=== PATIENT | male | born 1950 | race Caucasian/White ===

== ENCOUNTER → 2020-11-05 11:41 | Outpatient (BNVA) | payer MEDICARE, SELFPAY | PROVIDERS: Visit Provider Urology | DX: C61 Malignant neoplasm of prostate (principal); N52.01 Erectile dysfunction due to arterial insufficiency | CPT/HCPCS: 99212 ==

== ENCOUNTER → 2021-02-05 08:59 | Outpatient (BNVA) | payer MEDICARE, OTHER, SELFPAY | PROVIDERS: Visit Provider Urology | CPT/HCPCS: Q3014 ==

== ENCOUNTER → 2021-08-05 10:03 | Outpatient (BNVA) | payer MEDICARE, OTHER, SELFPAY | PROVIDERS: Visit Provider Urology | DX: N52.01 Erectile dysfunction due to arterial insufficiency (principal); C61 Malignant neoplasm of prostate; R39.12 Poor urinary stream | CPT/HCPCS: Q3014 ==

== ENCOUNTER → 2022-02-10 09:22 | Outpatient (BNVA) | payer MEDICARE, OTHER, SELFPAY | PROVIDERS: Visit Provider Urology | DX: C61 Malignant neoplasm of prostate (principal); N52.01 Erectile dysfunction due to arterial insufficiency | CPT/HCPCS: 99212 ==

== ENCOUNTER 2022-12-08 14:52 | Outpatient (REF) | payer MEDICARE, OTHER, SELFPAY ==
[2022-12-08 16:39] LABS: Urine Cytology See Pathology rpt
== END 2022-12-08 14:53 | disposition home or self-care (01) ==
LOC: HO.LNP 14:52
PROVIDERS: Visit Provider Urology
DX: N52.9 Male erectile dysfunction, unspecified (principal); R39.12 Poor urinary stream; R32 Unspecified urinary incontinence; Z85.46 Personal history of malignant neoplasm of prostate
CPT/HCPCS: 51798; 88112; 99212

== ENCOUNTER 2022-12-08 14:52 | Outpatient (AMB) | payer MEDICARE, OTHER, SELFPAY ==
--- NOTE | 2022-12-08 15:13 | A.OFFVIS_ITS ---
Intake Intake Visit Reasons: Incontinence Intake Note: Patient is present for incontinence Urology Medications: tolterodine, finasteride, sildenafil, tamsulosin Blood Thinner: aspirin PVR: Whale Fisherman Required: No Accompanied by: Self / Same As Patient Allergies No Known Allergies Allergy (Verified 12/08/22 15:19) HPI HPI Comments History of Present Illness Details Antoni Zaragoza is a very pleasant male. He is a patient of Dr. Antoine. He is seen for the following urologic conditions. - prostate cancer - kidney calcification Had episode running from June until September of urinary urgency and frequency Despite use of tolterodine Does feel stream is getting weaker Recommend check cystoscopy for bladder neck narrowing and possible radiation cystitis Prostate cancer: 2004 [place] 6 initial therapy brachytherapy Prostate cancer was diagnosed 04/2005. Initial PSA 2.74. TRUS biopsy November 2000, April 2005. The [place] grade is 3+3. TNM Classification of Malignant Tumours (TNM) T1c. Initial therapy included Primary treatment, brachytherapy - no reports of urge, frequency, radiation cystitis or radiation proctitis with rectal urgency. , Additional treatment, finasteride Recent labs included a PSA (prostate-specific antigen) March 2014 0.6, October 2014 0.75, 08/13 1.49, 12/13 , a testosterone 428, 02/13 a PSA (prostate-specific antigen), 1.1, 01/14 , a PSA (prostate-specific antigen) 1.2 03/17 0.75, 11/17 1.7, 02/17 1.2, 07/21 0.7, 02/18 0.7 Recent imaging included for 2-3 days Associated conditions erectile dysfunction Yes Therapeutic plan: Continue with surveillance. Current symptoms include none Erectile Dysfunction good response to sildenafil 100 mg prescription provided [facility] Medical History Colonic polyp GERD (gastroesophageal reflux disease) History of brachytherapy OA (osteoarthritis) Prostate cancer Prostate nodule Surgical History H/O left inguinal hernia repair History of left knee replacement History of total right knee replacement Family History Father No problems noted. Mother No problems noted. Review of Systems Const Denies chills and Denies fever(s) Card Reports no additional complaints and Denies syncope Resp Denies cough GI Denies abdominal pain and Denies heartburn Reports as per HPI and Denies change in libido Neuro Denies syncope Psych Denies change in libido Endo Denies change in libido Physical Exam Const General: cooperative, healthy appearing, comfortable and no acute distress Orientation/consciousness: patient oriented x3 HEENT Face and sinus: Yes normal facial exam Mouth: moist mucous membranes Neck Neck: Yes normal visual inspection, Yes full ROM and Yes trachea midline Chest Chest palpation & inspection: normal inspection of the chest Resp Effort & Inspection: normal respiratory effort, able to speak in complete sentences and no respiratory distress GI Inspection: Yes normal to inspection Back/Spine/Pelvis Cervical Spine: normal cervical lordosis Thoracic/Lumbar Spine: thoracic and lumbar spine normal to inspection Skin General skin exam: no rashes or lesions noted Neuro General: patient oriented x3, gait normal, tone normal and moves all extremities Extrem General: Yes normal to inspection and Yes capillary refill normal Office Procedures Post Void Residual Post Residual Void Post Void Residual (PVR): 0 [id number] Void Residual by ultrasound Results AMB Urinalysis, Automated UA Leukoctes 0 Josiane/uL Last Edit by Genmab on 12/08/22 15:33 UA Nitrite Negative Last Edit by Genmab on 12/08/22 15:33 UA Urobilinogen 0.2 mg/dL Last Edit by Genmab on 12/08/22 15:33 UA Protein 30 mg/dL Last Edit by Genmab on 12/08/22 15:33 UA pH 6.0 Last Edit by Genmab on 12/08/22 15:33 UA Blood 200 Shahzad/uL Last Edit by Genmab on 12/08/22 15:33 UA Specific [place] 1.030 Last Edit by Genmab on 12/08/22 15:33 UA Ketone Positive Last Edit by Genmab on 12/08/22 15:33 UA Bilirubin 1 mg/dL Last Edit by Genmab on 12/08/22 15:33 UA Glucose 0 mg/dL Last Edit by Genmab on 12/08/22 15:33 Results Reviewed Results Reviewed: Laboratory Last Values Urine pH (Auto) 6.0 12/08/22 15:20 Specific [place] (Auto) 1.030 12/08/22 15:20 Urine Protein (Auto) 30 mg/dL 12/08/22 15:20 Glucose (UA)(Auto) 0 mg/dL 12/08/22 15:20 Urine Ketones (Auto) Positive 12/08/22 15:20 Urine Blood (Auto) 200 Shahzad/uL 12/08/22 15:20 Urine Nitrite (Auto) Negative 12/08/22 15:20 Urine Bilirubin (Auto) 1 mg/dL 12/08/22 15:20 Urine Urobilinogen (Auto) 0.2 mg/dL 12/08/22 15:20 Leukocyte Esterase (Auto) 0 Josiane/uL 12/08/22 15:20 Assessment & Plan Assessment & Plan (1) Prostate cancer: Code(s): C61 - Malignant neoplasm of prostate (2) Urinary urgency: Code(s): R39.15 - Urgency of urination (3) Weak urinary stream: Code(s): R39.12 - Poor urinary stream Plan Office cystoscopy Orders: Orders Urine Cytology Today C61 - Malignant neoplasm of prostate AMB Urinalysis Automated Today Z13.9 - Encounter for screening, unspecified AMB Post Void Residual by ultrasound Today R39.12 - Poor urinary stream Patient Instructions: Imaging studies, laboratory and physical exam results were discussed and reviewed in detail. No major barriers to patient understanding were identified. An opportunity to ask questions regarding the treatment plan was provided. All questions were answered. The patient expressed understanding and agreement with the above treatment plan. The patient is aware they should contact our office by phone for worsening of their current condition or the appearance of new urologic symptoms. Compliance is encouraged with any medications and followup testing that is ordered. It is a privilege to participate in the urologic care of your patient. If you have any questions or concerns regarding treatment for the above conditions, or other urologic issues, please do not hesitate to contact me. The office telephone contact is [phone]. This note is constructed using voice recognition software. While every effort has been made to ensure accuracy stock taker errors may have been included. Yours sincerely, Dr Anthony Mcghee MD, BEATRICE [facility] - Urology Providers of Expert, Compassionate Care for the Genitourinary System Coding Level of Care Code Est Pt Level 4 (35071) Diagnoses Prostate cancer C61 Urinary urgency R39.15 Weak urinary stream R39.12 CPT Codes Post Residual Void - PVR CPT Code: [id number]-[id number] Void Residual by ultrasound ([id number])
== END 2022-12-08 16:06 | disposition home or self-care (01) ==
PROVIDERS: Visit Provider Urology
DX: C61 Malignant neoplasm of prostate (principal); R39.15 Urgency of urination; R39.12 Poor urinary stream
CPT/HCPCS: 99214

== ENCOUNTER 2023-03-31 13:42 | Outpatient (AMB) | payer MEDICARE, OTHER, SELFPAY ==
--- NOTE | 2023-03-31 13:42 | MHC.OFFVIS ---
Intake Intake Visit Reasons: Prostate cx/Urgency follow up/PSA (Med refill) Intake Note: Patient is present for follow up medication refill/psa lab (psa 1.11) Urology Medications: tolterodine, finasteride, sildenafil, tamsulosin Blood Thinner: none Special Delivery Messenger Required: No Accompanied by: Self / Same As Patient Allergies No Known Allergies Allergy (Verified 03/31/23 21:16) Medication List - Last Reconciled 03/31/23 by KEY Isidro- atorvastatin 20 mg PO DAILY escitalopram oxalate 10 mg PO DAILY finasteride 5 mg PO DAILY 90 days omeprazole 20 mg PO DAILY sildenafil 100 mg PO DAILY PRN 30 days tamsulosin 0.4 mg PO DAILY 90 days tolterodine ER 4 mg PO DAILY 90 days trazodone 50 mg PO DAILY HPI HPI Comments History of Present Illness Details Antoni is a very pleasant 72-year-old male patient of Dr. Werner. He has a past medical history of prostate nodule, colonic polyp, osteoarthritis, GERD, and prostate cancer. He is being follow-up on today via telehealth for his lower urinary tract symptoms and prostate cancer. He reports to be doing and feeling well. He discusses during last office visit plans were to follow-up with an in office cystoscopy however he has been busy with work and has not been able to schedule in office appointment thus telehealth today. He reports needing a refill on his tolterodine. He discusses upcoming appointment for cataract surgery at which time he will be stopping urological medications as suggested by shop helper. He reports when taking tolterodine, Flomax, and finasteride he has no bothersome urinary issues. However states over the last 6 weeks he has been out of tolterodine and has noted a significant decrease in his urinary stream. Discussed importance of following up in office for recommended checked cystoscopy for bladder neck narrowing and possible radiation cystitis. He otherwise offers no other issues or concerns at this time. Most recent PSA results reviewed with the patient today as noted below. Prostate cancer: 2005 [place] 6 initial therapy brachytherapy Prostate cancer was diagnosed 04/2005. Initial PSA 2.74. TRUS biopsy November 2000, April 2005. The [place] grade is 3+3. TNM Classification of Malignant Tumours (TNM) T1c. Initial therapy included Primary treatment, brachytherapy - no reports of urge, frequency, radiation cystitis or radiation proctitis with rectal urgency. , Additional treatment, finasteride Recent labs included a PSA (prostate-specific antigen) March 2014 0.6, October 2014 0.75, 08/13 1.49, 12/13 , a testosterone 428, 02/13 a PSA (prostate-specific antigen), 1.1, 01/14 , a PSA (prostate-specific antigen) 1.2 03/17 0.75, 11/17 1.7, 02/17 1.2, 07/21 0.7, 02/18 0.7, 03/21 1.1 Recent imaging included for 2-3 days Associated conditions erectile dysfunction Yes Therapeutic plan: Continue with surveillance. Current symptoms include none Erectile Dysfunction good response to sildenafil 100 mg prescription provided [facility] Medical History Prostate nodule Colonic polyp OA (osteoarthritis) GERD (gastroesophageal reflux disease) Prostate cancer History of brachytherapy Surgical History History of total right knee replacement History of left knee replacement H/O left inguinal hernia repair Family History Father No problems noted. Mother No problems noted. Review of Systems Const Reports no additional complaints Eyes Reports no additional complaints ENT Reports no additional complaints Card Reports no additional complaints Resp Reports no additional complaints GI Reports no additional complaints Reports as per HPI Musc Reports as per HPI Neuro Reports no additional complaints Psych Reports no additional complaints Endo Reports no additional complaints Physical Exam Const General: cooperative Resp Effort & Inspection: able to speak in complete sentences Psych Speech and movement: Clear speech present Attitude: cooperative Thought content: Normal thought content present Insight: Fair insight present (Psych) Judgement: Fair judgement present (Psych) Assessment & Plan Assessment & Plan (1) Prostate cancer: Code(s): C61 - Malignant neoplasm of prostate (2) Urinary urgency: Code(s): R39.15 - Urgency of urination (3) Weak urinary stream: Code(s): R39.12 - Poor urinary stream Plan Recent PSA results reviewed with the patient today; as noted above. Refills provided. Discussed, educated, encouraged on the importance of following up for in office cystoscopy for further assessment evaluation Discussed importance of keeping scheduled appointments for continuity of care. Continue tamsulosin, tolterodine, and finasteride as discussed and prescribed. PSA in 6 months. Follow-up in office cystoscopy with lab to be completed prior; or sooner with any issues, concerns, and or questions. Orders: Orders Prostate Specific Antigen 6 Months C61 - Malignant neoplasm of prostate Medications: Refilled tolterodine ER 4 mg PO DAILY 90 days 90 caps 1RF Patient Instructions: The patient had an opportunity to ask questions regarding the treatment plan. All questions were answered. Physical exam, labs, and imaging were discussed and reviewed in detail. As well as risks, benefits, and discussion of treatment choices. No major barriers to understanding were identified. The patient expressed understanding and agreement with the above treatment plan. The patient was made aware they should contact our office by phone for worsening of their current condition, the appearance of new symptoms, or with any questions or concerns. Compliance is encouraged with any medications and follow up testing that is ordered. It is a privilege to be allowed the opportunity to participate in? your urological care.? Again, if you have any questions or concerns If you have any questions or concerns please do not hesitate to contact me. The office is [phone]. This note is constructed using voice recognition software. While every effort has been made to ensure accuracy primary school teacher librarian errors may have been included. Yours sincerely, KEY Isidro- Telehealth Telehealth Location of provider rendering services: practice address Location of patient: address on file Patient Identification confirmed using: Name, : Yes Telehealth method: voice only Patient verbally consented to treatment: Yes Patient verbally consented to billing insurance company: Yes Patient informed of any privacy concerns related to visit: Yes Minutes spent on Phone/Video with Pt.: 15 Coding Level of Care Code Tele Est Pt Level 3 (98188) Diagnoses Prostate cancer C61 Urinary urgency R39.15 Weak urinary stream R39.12
== END 2023-03-31 14:24 | disposition home or self-care (01) ==
LOC: HO.HUSH 13:42
PROVIDERS: PCP Internal Medicine; Visit Provider Nurse Practitioner Family
DX: C61 Malignant neoplasm of prostate (principal); R39.15 Urgency of urination; R39.12 Poor urinary stream
CPT/HCPCS: 99442

== ENCOUNTER → 2023-03-31 13:42 | Outpatient (BNVA) | payer MEDICARE, OTHER, SELFPAY | PROVIDERS: PCP Internal Medicine; Visit Provider Nurse Practitioner Family ==

== ENCOUNTER 2023-11-25 09:49 | Outpatient (AMB) | payer MEDICARE, OTHER, SELFPAY ==
--- NOTE | 2023-11-25 09:55 | A.OFFVIS_ITS ---
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 He is a patient of Dr. Werner. He has seen for the following urologic conditions - prostate cancer - erectile dysfunction - bladder neck stricture Discussion regarding bladder neck stricture Occurred following brachytherapy was associated with urinary leakage Recent dilatation down in [place] We discussed using penile clamp for leakage. He has 2 problems which include a bladder neck stricture and loose voluntary sphincter. Text book management would involved bladder neck incision creating full incontinence followed by artificial urinary sphincter. Over 76 management of artificial urinary sphincter due to dexterity can become an issue At this point in time he will just continue to follow Reports PSA staying stable Prostate cancer: 2005 [place] 6 initial therapy brachytherapy Prostate cancer was diagnosed 04/2005. Initial PSA 2.74. TRUS biopsy November 2000, April 2005. The [place] grade is 3+3. TNM Classification of Malignant Tumours (TNM) T1c. Initial therapy included Primary treatment, brachytherapy - no reports of urge, frequency, radiation cystitis or radiation proctitis with rectal urgency. , Additional treatment, finasteride Recent labs included a PSA (prostate-specific antigen) March 2014 0.6, October 2014 0.75, 08/13 1.49, 12/13 , a testosterone 428, 02/13 a PSA (prostate-specific antigen), 1.1, 01/14 , a PSA (prostate-specific antigen) 1.2 03/17 0.75, 11/17 1.7, 02/17 1.2, 07/21 0.7, 02/18 0.7, 03/21 1.1 Recent imaging included for 2-3 days Associated conditions erectile dysfunction Yes Therapeutic plan: Continue with surveillance. Current symptoms include none Erectile Dysfunction good response to sildenafil 100 mg prescription provided [facility] Medical History Prostate nodule Colonic polyp OA (osteoarthritis) GERD (gastroesophageal reflux disease) Prostate cancer History of brachytherapy Surgical History History of total right knee replacement History of left knee replacement H/O left inguinal hernia repair Family History Father No problems noted. Mother No problems noted. Review of Systems Const Denies chills and Denies fever(s) Card Reports no additional complaints and Denies syncope Resp Denies cough GI Denies abdominal pain and Denies heartburn Reports as per HPI and Denies change in libido Neuro Denies syncope Psych Denies change in libido Endo Denies change in libido Physical Exam Const General: cooperative, healthy appearing, comfortable and no acute distress Orientation/consciousness: patient oriented x3 HEENT Face and sinus: Yes normal facial exam Mouth: moist mucous membranes Neck Neck: Yes normal visual inspection, Yes full ROM and Yes trachea midline Chest Chest palpation & inspection: normal inspection of the chest Resp Effort & Inspection: normal respiratory effort, able to speak in complete sentences and no respiratory distress GI Inspection: Yes normal to inspection Back/Spine/Pelvis Cervical Spine: normal cervical lordosis Thoracic/Lumbar Spine: thoracic and lumbar spine normal to inspection Skin General skin exam: no rashes or lesions noted Neuro General: patient oriented x3, gait normal, tone normal and moves all extremities Extrem General: Yes normal to inspection and Yes capillary refill normal Results AMB Urinalysis, Automated UA Leukoctes 0 Josiane/uL Last Edit by REJI Almanzar on 11/25/23 10:19 UA Nitrite Negative Last Edit by REJI Almanzar on 11/25/23 10:19 UA Urobilinogen 0.2 mg/dL Last Edit by REJI Almanzar on 11/25/23 10:1 9 UA Protein 30 mg/dL Last Edit by REJI Almanzar on 11/25/23 10:19 UA pH 6.0 Last Edit by REJI Almanzar on 11/25/23 10:19 UA Blood 10 Shahzad/uL Last Edit by REJI Almanzar on 11/25/23 10:19 UA Specific [place] 1.025 Last Edit by REJI Almanzar on 11/25/23 10: 19 UA Ketone Positive Last Edit by REJI Almanzar on 11/25/23 10:19 UA Bilirubin 1 mg/dL Last Edit by REJI Almanzar on 11/25/23 10:19 UA Glucose 0 mg/dL Last Edit by REJI Almanzar on 11/25/23 10:19 Results Reviewed Results Reviewed: Laboratory Last Values Urine pH (Auto) 6.0 11/25/23 10:18 Specific [place] (Auto) 1.025 11/25/23 10:18 Urine Protein (Auto) 30 mg/dL 11/25/23 10:18 Glucose (UA)(Auto) 0 mg/dL 11/25/23 10:18 Urine Ketones (Auto) Positive 11/25/23 10:18 Urine Blood (Auto) 10 Shahzad/uL 11/25/23 10:18 Urine Nitrite (Auto) Negative 11/25/23 10:18 Urine Bilirubin (Auto) 1 mg/dL 11/25/23 10:18 Urine Urobilinogen (Auto) 0.2 mg/dL 11/25/23 10:18 Leukocyte Esterase (Auto) 0 Josiane/uL 11/25/23 10:18 Assessment & Plan Assessment & Plan (1) Urinary urgency: Code(s): R39.15 - Urgency of urination Category: Medical (2) Weak urinary stream: Code(s): R39.12 - Poor urinary stream Category: Medical Plan Twelve month follow-up Orders: Orders AMB Urinalysis Automated Today Z13.9 - Encounter for screening, unspecified Patient Instructions: Imaging studies, laboratory and physical exam results were discussed and reviewed in detail. No major barriers to patient understanding were identified. An opportunity to ask questions regarding the treatment plan was provided. All questions were answered. The patient expressed understanding and agreement with the above treatment plan. The patient is aware they should contact our office by phone for worsening of their current condition or the appearance of new urologic symptoms. Compliance is encouraged with any medications and followup testing that is ordered. It is a privilege to participate in the urologic care of your patient. If you have any questions or concerns regarding treatment for the above conditions, or other urologic issues, please do not hesitate to contact me. The office telephone contact is [phone]. This note is constructed using voice recognition software. While every effort peguero s been made to ensure accuracy grain elevator operator errors may have been included. Yours sincerely, Dr Anthony Mcghee MD, BEATRICE [facility] - Urology Providers of Expert, Compassionate Care for the Genitourinary System Coding Level of Care Code Est Pt Level 4 (25840) Diagnoses Urinary urgency R39.15 Weak urinary stream R39.12
== END 2023-11-25 10:28 | disposition home or self-care (01) ==
PROVIDERS: PCP Internal Medicine; Visit Provider Urology
DX: R39.15 Urgency of urination (principal); R39.12 Poor urinary stream; Z13.9 Encounter for screening, unspecified
CPT/HCPCS: 99214

== ENCOUNTER → 2023-11-25 09:49 | Outpatient (BNVA) | payer MEDICARE, OTHER, SELFPAY | PROVIDERS: PCP Internal Medicine; Visit Provider Urology | DX: R39.15 Urgency of urination (principal); R39.12 Poor urinary stream | CPT/HCPCS: 81003; 99212 ==

== ENCOUNTER 2024-11-22 10:39 | Outpatient (AMB) | payer MEDICARE, OTHER, SELFPAY ==
--- NOTE | 2024-11-22 10:50 | A.OFFVIS_ITS ---
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 He is a patient of Dr. Werner. He has seen for the following urologic conditions - prostate cancer - erectile dysfunction - bladder neck stricture Continence has been stable PSA reported low Refill medications tolterodine for bladder stability and sildenafil Bladder neck stricture Occurred following brachytherapy was associated with urinary leakage Prior dilatation down in [place] Prostate cancer: 2004 Register 6 initial therapy brachytherapy Prostate cancer was diagnosed 04/2005. Initial PSA 2.74. TRUS biopsy November 2000, April 2005. The Register grade is 3+3. TNM Classification of Malignant Tumours (TNM) T1c. Initial therapy included Primary treatment, brachytherapy - no reports of urge, frequency, radiation cystitis or radiation proctitis with rectal urgency. , Additional treatment, finasteride Recent labs included a PSA (prostate-specific antigen) March 2014 0.6, October 2014 0.75, 08/13 1.49, 12/13 , a testosterone 428, 02/13 a PSA (prostate-specific antigen), 1.1, 01/14 , a PSA (prostate-specific antigen) 1.2 03/17 0.75, 11/17 1.7, 02/17 1.2, 07/21 0.7, 02/18 0.7, 03/21 1.1 Recent imaging included for 2-3 days Associated conditions erectile dysfunction Yes Therapeutic plan: Continue with surveillance. Current symptoms include none Erectile Dysfunction good response to sildenafil 100 mg prescription provided [facility] Medical History Prostate nodule Colonic polyp OA (osteoarthritis) GERD (gastroesophageal reflux disease) Prostate cancer History of brachytherapy Surgical History History of total right knee replacement History of left knee replacement H/O left inguinal hernia repair Family History Father No problems noted. Mother No problems noted. Review of Systems Const Denies chills and Denies fever(s) Card Reports no additional complaints and Denies syncope Resp Denies cough GI Denies abdominal pain and Denies heartburn Reports as per HPI and Denies change in libido Neuro Denies syncope Psych Denies change in libido Endo Denies change in libido Physical Exam Const General: cooperative, healthy appearing, comfortable and no acute distress Orientation/consciousness: patient oriented x3 HEENT Face and sinus: Yes normal facial exam Mouth: moist mucous membranes Neck Neck: Yes normal visual inspection, Yes full ROM and Yes trachea midline Chest Chest palpation & inspection: normal inspection of the chest Resp Effort & Inspection: normal respiratory effort, able to speak in complete sentences and no respiratory distress GI Inspection: Yes normal to inspection Back/Spine/Pelvis Cervical Spine: normal cervical lordosis Thoracic/Lumbar Spine: thoracic and lumbar spine normal to inspection Skin General skin exam: no rashes or lesions noted Neuro General: patient oriented x3, gait normal, tone normal and moves all extremities Extrem General: Yes normal to inspection and Yes capillary refill normal Results AMB Urinalysis, Automated UA Leukoctes 0 Josiane/uL Last Edit by REJI Almanzar on 11/22/24 11:04 UA Nitrite Negative Last Edit by REJI Almanzar on 11/22/24 11:04 UA Urobilinogen 0.2 mg/dL Last Edit by REJI Almanzar on 11/22/24 11:0 4 UA Protein 15 mg/dL Last Edit by REJI Almanzar on 11/22/24 11:04 UA pH 6.0 Last Edit by REJI Almanzar on 11/22/24 11:04 UA Blood 0 Shahzad/uL Last Edit by REJI Almanzar on 11/22/24 11:04 UA Specific [place] 1.015 Last Edit by REJI Almanzar on 11/22/24 11: 04 UA Ketone Negative Last Edit by REJI Almanzar on 11/22/24 11:04 UA Bilirubin 0 mg/dL Last Edit by REJI Almanzar on 11/22/24 11:04 UA Glucose 0 mg/dL Last Edit by REJI Almanzar on 11/22/24 11:04 Assessment & Plan Assessment & Plan (1) Prostate cancer: Code(s): C61 - Malignant neoplasm of prostate Category: Medical (2) Erectile dysfunction due to arterial insufficiency: Code(s): N52.01 - Erectile dysfunction due to arterial insufficiency Category: Medical Plan Twelve month follow-up Orders: Orders AMB Urinalysis Automated Today Z13.9 - Encounter for screening, unspecified Medications: Changed From sildenafil administer 60 minutes before intended activity 100 mg PO DAILY 30 days PRN 30 tabs 1RF sexual activity N52.01 - Erectile dysfunction due to arterial insufficiency To sildenafil administer 60 minutes before intended activity [id number] [facility] [id number] Member [id number] 100 mg PO DAILY PRN 30 tabs 1RF sexual activity 30 days N52.01 - Erectile dysfunction due to arterial insufficiency Refilled tolterodine ER 4 mg PO DAILY 90 caps 3RF 90 days Patient Instructions: This note is constructed using voice recognition software. While every effort has been made to ensure accuracy jailer/training officer errors may have been included. Imaging studies, laboratory and physical exam results were discussed and reviewed in detail. No major barriers to patient understanding were identified. An opportunity to ask questions regarding the treatment plan was provided. All questions were answered. The patient expressed understanding and agreement with the above treatment plan. The patient is aware they should contact our office by phone for worsening of their current condition or the appearance of new urologic symptoms. Compliance is encouraged with any medications and followup testing that is ordered. It is a privilege to participate in the urologic care of your patient. If you have any questions or concerns regarding treatment for the above conditions, or other urologic issues, please do not hesitate to contact me. The office telephone contact is [phone]. Sincerely, Dr Anthony Mcghee MD, [facility] - Urology Compassionate Specialist Care for the Genitourinary System Coding Level of Care Code Est Pt Level 4 (37736) Complex EM visit Add On G2211 Diagnoses Prostate cancer C61 Erectile dysfunction due to arterial insufficiency N52.01
--- OUTSIDE RECORDS SUMMARY | 2024-11-22 12:29 | XMS_ITS | Data Portability ---
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 Plan of Treatment Reminders Order Date Submit Date Provider Last Modified By Organization Details Last Modified Time Details Appointments None record ed. Lab None record ed. Referral None record ed. Procedures None record ed. Surgeries None record ed. Imaging XR, should er, 2 or more view 024 02/01/20 24 [facility] [place], [address], [address], 23:39:18 Medication Orders None record ed. Patient TargetsNo targets recorded. Patient InstructionsNo instructions recorded. Reason for Referral None Reported. Results Created Date Observation Date Name Description Value Unit Range Abnormal Flag Note LastModifiedBy Organization Detail LastModifiedTime 02/01/20 24 XR, shoul meng, 2 or more view No observ ation record ed. [facility] [place] [address] [place] [address], [address], 02/06/2024 09:38:43 Result Notes None recorded. Problems Name Problem SNOMED Code Status Onset Date Resolution Date Notes Provider Name and Address Organization Details Recorded Time Localize d, primary osteoart hritis of the shoulder region 294375479 Active 2019 Primary osteoarth ritis, right shoulder; W/U Status: confirmed Not Available [facility] 4 10:47:52 Impingem ent syndrome of left shoulder region 54952983308 9104 Active 2021 Impingeme nt syndrome of left shoulder; W/U Status: confirmed Not Available [facility] 4 10:47:52 Impingem ent syndrome of shoulder region 865546157 Active 2019 Impingeme nt syndrome of right shoulder; W/U Status: confirmed Not Available [facility] 4 10:47:53 Sprain of left rotator cuff capsule 57098280466 694910 Active 2021 Sprain of left rotator cuff capsule, initial encounter ; W/U Status: confirmed Not Available [facility] 4 10:47:53 Bicipita l tenosyno vitis 01147668 Active 2019 Bicipital tendiniti s, right shoulder; W/U Status: confirmed Not Available [facility] 4 10:47:53 Biceps tendinit is 877749948 Active 2021 Bicipital tendiniti s, left shoulder; W/U Status: confirmed Not Available [facility] 4 10:47:53 Sprain of right rotator cuff capsule 87886058198 071427 Active 2019 Sprain of right rotator cuff capsule, initial encounter ; W/U Status: confirmed Not Available [facility] 4 10:47:53 Shoulder joint pain 313044602 Active 2019 Pain in right shoulder; W/U Status: confirmed Not Available [facility] 4 10:47:53 Pain of left shoulder joint 27513022854 188438 Active 2023 Chantale Cintron null, [facility] 4 15:17:19 Pain of right shoulder joint 20424959149 966158 Active 2022 Chantale Cintron null, [facility] 4 07:15:09 Sprain of shoulder rotator cuff 56916082061 4 Active 2022 Kenny Uriarte null, [facility] [place] 3 08:39:58 Biceps tendinit is 391086897 [facility] 2022 [facility] [place] [facility] 08:40:13 Osteoart hritis of joint of right shoulder region 28207713300 9100 Active 2022 Kenny Uriarte [facility] [place] 08:40:26 Problem Notes None recorded. Procedures Surgical History Date Name Laterality Status Provider Name and Address Organization Details Recorded Time 05/10/20 AJC-Shoulder Cortisone Injection completed Anthony Martinez MD [address], [place], [address], [facility] [place] 05/10/2024 08:39:36 05/03/20 24 AJC-Shoulder Cortisone Injection completed Anthony Martinez MD [address], [place], [address], [facility] 05/03/2024 08:08:06 02/06/20 24 AJC-Shoulder Cortisone Injection completed Anthony Martinez MD [address], [place], [address], [facility] [place] 02/06/2024 10:25:42 01/26/20 24 AJC-Shoulder Cortisone Injection completed JULIAN MCNEIL [address], [place], [address], [facility] [place] 01/26/2024 08:34:56 09/29/19 24 AJC-Shoulder Cortisone Injection completed Anthony Martinez MD [address], [place], [address], [facility] [place] 09/29/2023 13:25:51 08/23/19 24 AJC-Shoulder Cortisone Injection completed Anthony Martinez MD [address], [place], [address], [facility] [place] 08/23/2023 08:42:42 06/23/19 24 AJC-Shoulder Cortisone Injection completed Anthony Martinez MD [address], [place], [address], [facility] [place] 06/23/2023 12:18:23 05/16/20 23 AJ-Shoulder Cortisone Injection completed Anthony Martinez MD [address] [address],[address], [place], [address], [facility] - [facility] 05/16/2023 08:13:44 03/30/20 Cataract surg w/iol 1 stage completed Ayshaeliot Carlos [facility] [place] 01/26/2024 08:19:15 Imaging Results None recorded. Procedure Notes None recorded. Medical Equipment None Reported. Allergies No known drug allergies Medications Name Sig Start Date Stop Date Status Note LastModified by Organization Details LastModified Time diclofenac 3% / baclofen 2% / gabapentin 6% / bupivacaine hcl 1% Apply 1-3 grams to the affected area 3-4 times daily (KNEES) 06/23 completed Not Available Not Available Not Available amoxicillin 500 mg capsule TAKE 4 CAPSULES BY MOUTH 1 HOUR PRIRO TO APPOINTME NT 09/28 completed Not Available Not Available Not Available desonide 0.05 % topical cream PLEASE SEE ATTACHED FOR DETAILED DIRECTION S active Not Available Not Available No t Available atorvastati n 20 mg tablet TAKE 1 TABLET BY MOUTH EVERY DAY FOR 90 DAYS active Not Available Not Available No t Available ketoconazol e 2 % shampoo APPLY TO SCALP TWICE WEEKLY IN THE SHOWER. LET SIT FOR 5 MINUTES BEFORE RINSING active Not Available Not Available No t Available trazodone 50 mg tablet TAKE 1 TABLET BY MOUTH EVERY DAY IN THE EVENING active Not Available Not Available No t Available cetirizine 10 mg tablet TAKE 1 TABLET BY MOUTH EVERY DAY active Not Available Not Available No t Available azithromyci n 250 mg tablet TAKE 2 TABLETS BY MOUTH TODAY, THEN TAKE 1 TABLET DAILY FOR 4 DAYS 06/23 completed Not Available Not Available Not Available tolterodine ER 4 mg capsule,ext ended release 24 hr TAKE 1 CAPSULE BY MOUTH ONCE DAILY active Not Available Not Available No t Available meloxicam 15 mg tablet TAKE 1 TABLET BY MOUTH EVERY DAY active Not Available Not Available No t Available prednisone 20 mg tablet TAKE 1 TABLET BY MOUTH EVERY DAY FOR 5 DAYS WITH FOOD OR MILK 06/23 completed Not Available Not Available Not Available sildenafil 25 mg tablet 1 tab(s); once a day active Actio n: Galina Valente rce: Wei Roberts ather L Prep ared By: Wei Roberts Not Available Not Available Not Available tramadol 50 mg tablet TAKE 1 TABLET BY MOUTH EVERY 4 TO 6 HOURS FOR 7 DAYS 2023 active Not Available Not Available Not Avai lable triamcinolo ne acetonide 0.1 % topical cream active Not Available Not Available Not Available famotidine 20 mg tablet TAKE 1 TABLET BY MOUTH TWICE A DAY active Not Available Not Available No t Available tamsulosin 0.4 mg capsule 1 cap(s); once a day; 30 day(s) active Actio n: Galina Valente rce: Wei Roberts ather L Prep ared By: Wei Roberts Not Available Not Available Not Available dicyclomine 20 mg tablet TAKE 1 TABLET BY MOUTH THREE TIMES A DAY FOR 30 DAYS 06/23 completed Not Available Not Available Not Available benzonatate 100 mg capsule TAKE 1 CAPSULE BY MOUTH 3 TIMES A DAY FOR 7 DAYS NEEDED 06/23 completed Not Available Not Available Not Available triamcinolo ne acetonide 0.1 % topical ointment PLEASE SEE ATTACHED FOR DETAILED DIRECTION S 06/23 completed Not Available Not Available Not Available omeprazole 20 mg capsule,del ayed release 1 cap(s); once a day; 30 day(s) active Actio n: Galina Valente rce: Wei Roberts ather L Prep ared By: Wei Roberts Not Available Not Available Not Available codeine 10 mg-guaifene sin 100 mg/5 mL oral liquid TAKE 10 ML BY MOUTH EVERY 6 HOURS NEEDED FOR COUGH 06/23 completed Not Available Not Available Not Available Valium 10 mg tablet 1-2 tab(s) before MRI for anxiety; before MRI for anxiety; 1 days 2021 active Actio n: Galina Valente rce: Wei Roberts ather L Prep ared By: Wei Roberts [facility] t: M25.5 12 Pain in left shoul meng Not Available Not Available Not Available methylpredn isolone 4 mg tablets in a dose pack TAKE 6 TABLETS ON DAY 1 DIRECTED ON PACKAGE AND DECREASE BY 1 TAB EACH DAY FOR A TOTAL OF 6 DAYS 09/28 completed Not Available Not Available Not Available clobetasol 0.05 % scalp solution APPLY TO PSORIASIS LESIONS ON SCALP TWICE DAILY FOR 2 WEEKS, THEN NEEDED FOR FLARES active Not Available Not Available No t Available fluticasone propionate 50 mcg/actuati on nasal spray,suspe nsion SPRAY 1 SPRAY BY INTRANASA L ROUTE EVERY DAY 06/23 completed Not Available Not Available Not Available doxycycline hyclate 100 mg tablet TAKE 1 TABLET BY MOUTH DAILY, START 2 DAYS PRIOR TO TRAVEL 09/28 completed Not Available Not Available Not Available finasteride 5 mg tablet 1 tab(s); once a day; 30 day(s) active Actio n: Galina Valente rce: Wei Roberts ather L Prep ared By: Wei Roberts ather Not Available Not Available Not Available Ventolin HFA 90 mcg/actuati on aerosol inhaler TAKE 2 PUFFS BY MOUTH EVERY 6 HOURS NEEDED FOR SHORTNESS OF BREATH 06/23 completed Not Available Not Available Not Available ergocalcife rol (vitamin D2) 200 mcg/mL (8,000 unit/mL) oral drops 0.025 mL; once a day; 30 day(s) active Actio n: Galnia Valente rce: Wei Roberts ather L Prep ared By: Wei Roberts Not Available Not Available Not Available escitalopra m 10 mg tablet TAKE 1 TABLET BY MOUTH EVERY DAY active Not Available Not Available No t Available Trazodone active Actio n: Galina Valente rce: Wei Roberts ather L Prep ared By: Wei Roberts Not Available Not Available Not Available Hydrocodone active Actio n: Galina Valente rce: Wei Roberts ather L Prep ared By: Wei Roberts ather Not Available Not Available Not Available Vitals Date Recorded Body height Body mass index (BMI) Body weight Systolic blood pressure Diastolic blood pressure Provider Name and Address Organization Details Last Updated DateTime 09/29/2023 172.72 cm 25.1 kg/m2 10641.74 g 130 mm[Hg] 80 mm[Hg] Anthony Martinez MD [address] [address],[address], [place], [address] [place], [place] - [facility] 4 13:18:12 Date Recorded Body height Body mass index (BMI) Body weight Systolic blood pressure Diastolic blood pressure Provider Name and Address Organization Details Last Updated DateTime 01/26/2024 172.72 cm 24.9 kg/m2 62101.1 5 g 110 mm[Hg] 60 mm[Hg] Aysha Carlos [facility] [place] 4 08:18:43 Date Recorded Body height Body mass index (BMI) Body weight Systolic blood pressure Diastolic blood pressure Provider Name and Address Organization Details Last Updated DateTime 02/06/2024 172.72 cm 24.3 kg/m2 59485.78 g 118 mm[Hg] 68 mm[Hg] Chantale [facility] [place] 4 10:13:34 Date Recorded Body height Body mass index (BMI) Body weight Heart rate Oxygen saturation Oxygen saturation in Arterial blood by Pulse oximetry Systolic blood pressure Diastolic blood pressure Provider Name and Address Organization Details Last Updated DateTime 172.72 cm 25.1 kg/m2 14366.7 4 g 72 /min 98 % 98 % 126 mm[Hg] 80 mm[Hg] Chantale [facility] 4 08:03:39 Date Recorded Body height Body mass index (BMI) Body weight Heart rate Oxygen saturation Oxygen saturation in Arterial blood by Pulse oximetry Systolic blood pressure Diastolic blood pressure Provider Name and Address Organization Details Last Updated DateTime 172.72 cm 25.1 kg/m2 76450.7 4 g 70 /min 98 % 98 % 130 mm[Hg] 82 mm[Hg] Chantale [facility] 4 08:27:30 Social History None recorded. Functional Status Question Answer Note LastModified by Organizat ion Details LastModified Time How many times per week do you consume alcohol? 1-2 times per week [email or web address] Information not available 06/23/2023 What is your level of alcohol consumption? Occasional [email or web address] Information not available 05/12/2023 Mental Status None recorded. Family History Nothing Reported Notes:Father: diagnosed with Diabetes, Cancer Mother: diagnosed with Diabetes, Heart Disease Medical History No medical history recorded. 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 His LMI CT scan reveals AC joint djd, GH elevation with severe GH OA with remodeling , clavicle dislocatio n, SA fluid, massive RCT with a Type II acromion. Pt is not interested in surgery at this time. He stated he would like to proceed with a TSA when time for surgery. I explained the reasons why he would need a RTSA and not a TSA. I have recommende d CSI (SA and Biceps). Impingemen t syndrome of right shoulder region 0693114340 91237 M75.41 Tendinitis of long head of biceps brachii of right shoulder 480369171 M75.21 Sprain of shoulder rotator cuff 5318219143 04 S43.421A [id number] Anthony Martinez MD [facility] [address] [address],[address] [place] [address] 06/23/2023 11:28:32 06/23/2023 12:26:29 Pain of left shoulder joint 2462493160 9115828 M25.512 His office radiograph s reveal GH narrowing, decreased SA space on weighted views, an a Type II acromion. His LMI MRI reveals AC joint djd, moderate GH OA, SA fluid, fluid about the biceps tendon, massive FT-RCT with a Type II acromion. He is not interested in surgery at this time (RTSA). 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 His LMI CT scan reveals AC joint djd, GH elevation with severe GH OA with remodeling , clavicle dislocatio n, SA fluid, massive RCT with a Type II acromion. Pt is not interested in surgery at this time. He stated he would like to proceed with a TSA when time for surgery. I explained the reasons why he would need a RTSA and not a TSA. I have recommende d CSI (SA and Biceps). Sprain of shoulder rotator cuff 8564292210 04 S43.421A Impingemen t syndrome of right shoulder region 9995026505 74965 M75.41 Tendinitis of long head of biceps brachii of right shoulder 048345041 M75.21 Osteoarthr itis of joint of right shoulder region 2542865856 48558 M19.011 [id number] Anthony Martinez MD [facility] [address] [address],[address] [place] [address] 09/29/2023 11:36:32 09/29/2023 13:33:05 Pain of left shoulder joint 8802281022 6695521 M25.512 His office radiograph s reveal GH narrowing, decreased SA space on weighted views, an a Type II acromion. His LMI MRI reveals AC joint djd, moderate GH OA, SA fluid, fluid about the biceps tendon, massive FT-RCT with a Type II acromion. He is not interested in surgery at this time (RTSA). I have recommende d CSIs (SA and biceps) and a HEP [id number] Anthony Martinez MD [facility] [address] [address],[address] [place] [address] 01/26/2024 07:55:04 01/26/2024 08:42:13 Pain of left shoulder joint 9083045633 2141062 M25.512 His office radiograph s reveal GH narrowing, decreased SA space on weighted views, an a Type II acromion. His LMI MRI reveals AC joint djd, moderate GH OA, SA fluid, fluid about the biceps tendon, massive FT-RCT with a Type II acromion. He is not interested in surgery at this time (RTSA). I have recommende d CSIs (SA and biceps) and a HEP Impingemen t syndrome of left shoulder region 6573612937 12091 M75.42 Tendinitis of long head of biceps brachii of left shoulder 493794263 M75.22 Sprain of left rotator cuff capsule 7227019655 7460183 S43.422A Nontraumat ic complete rupture of rotator cuff of left shoulder 5738880716 075027 M75.122 Osteoarthr itis of joint of left shoulder region 4971327165 07330 M19.012 [id number] Anthony Martinez MD [facility] [address] [address] [place] [address] 02/06/2024 09:38:20 02/06/2024 10:33:23 Pain of right shoulder joint 6622643129 4863678 M25.511 His office radiograph s reveal AC joint djd, GH elevation with severe GH OA, Clavicle dislocatio n with a Type II acromion. His LMI CT scan reveals AC joint djd, GH elevation with severe GH OA with remodeling , clavicle dislocatio n, SA fluid, massive RCT with a Type II acromion. Pt is not interested in surgery at this time. He stated he would like to proceed with a TSA when time for surgery. I explained the reasons why he would need a RTSA and not a TSA. I have recommende d CSI (SA and Biceps). Impingemen t syndrome of right shoulder region 3538332417 68362 M75.41 Tendinitis of long head of biceps brachii of right shoulder 941855478 M75.21 Sprain of shoulder rotator cuff 4037882483 04 S43.421A Osteoarthr itis of joint of right shoulder region 5957487174 23793 M19.011 [id number] Anthony Martinez MD [facility] [address] [address],[address] [place] [address] 05/03/2024 07:55:33 05/03/2024 08:13:36 Pain of left shoulder joint 3135823631 6647033 M25.512 His office radiograph s reveal GH narrowing, decreased SA space on weighted views, an a Type II acromion. His LMI MRI reveals AC joint djd, moderate GH OA, SA fluid, fluid about the biceps tendon, massive FT-RCT with a Type II acromion. He is not interested in surgery at this time (RTSA). I have recommende d CSIs (SA and biceps) and a HEP Impingemen t syndrome of left shoulder region 4901562835 38113 M75.42 Tendinitis of long head of biceps brachii of left shoulder 590154409 M75.22 Sprain of left rotator cuff capsule 7944710759 6625978 S43.422A Nontraumat ic complete rupture of rotator cuff of left shoulder 6091327250 875145 M75.122 Osteoarthr itis of joint of left shoulder region 8389336116 90149 M19.012 [id number] Anthony Martinez MD [facility] [address] [place] [address] 05/10/2024 07:51:14 05/10/2024 08:45:07 Pain of right shoulder joint 8627781074 5972898 M25.511 His office radiograph s reveal AC joint djd, GH elevation with severe GH OA, Clavicle dislocatio n with a Type II acromion. His LMI CT scan reveals AC joint djd, GH elevation with severe GH OA with remodeling , clavicle dislocatio n, SA fluid, massive RCT with a Type II acromion. Pt is not interested in surgery at this time. He stated he would like to proceed with a TSA when time for surgery. I explained the reasons why he would need a RTSA and not a TSA. I have recommende d CSI (SA and Biceps). Impingemen t syndrome of right shoulder region 3913548953 01862 M75.41 Tendinitis of long head of biceps brachii of right shoulder 323281575 M75.21 Sprain of shoulder rotator cuff 5733096966 04 S43.421A Osteoarthr itis of joint of right shoulder region 5076130059 72643 M19.011 Health Concerns Section Related Observation LastModified by Organization Detai ls LastModified Time None Recorded Concern Status LastModified by Organization Details LastModified Time None Recorded Advance Directives Directive None Recorded Payers Insurance Date Sequence Insurance Name Policy Number Policy [place] Covered Member ID [place] Member ID Guarantor Name 05/03/2024 1 [place] Antoni Zaragoza [id number] Antoni Zaragoza 05/07/2024 2 [facility] [id number] Antoni Zaragoza [id number] Antoni Zaragoza Notes Date Note Type Note Provider Name and Address Organization Details Recorded Time 09/29/2023 text/html ShoulderReported bypatient.Hand Dominance:right Location:left Quality:aching; sharp Severity:pain level 9 8/10 The patient returns today for follow up on his Lt shoulder. He notes increased pain. Anthony Martinez MD [address] [address],[address], [place], [address], [facility] 09/29/2023 13:26:53 01/26/2024 text/html ShoulderReported bypatient.Location:lef t Severity:pain level 5/10; worst pain 8/10 The patient returns today for a follow up on his left shoulder. Patient notes an increase in pain. JULIAN MCNEIL [address] [address],[address], [place], [place], [address] [place] [address], [facility] 01/26/2024 08:40:38 02/06/2024 text/html ShoulderReported bypatient.Hand Dominance:right Location:left; right Quality:aching; dull Severity:pain level 6 5/10; worst pain 8/10 The patient returns today for a follow up on his left shoulder. Patient notes an increase in pain. Anthony Martinez MD [address], [place], [address], [facility] 02/06/2024 10:26:59 05/03/2024 text/html ShoulderReported bypatient.Hand Dominance:right Location:left Quality:aching; dull Severity:pain level 5/10 The patient returns today for a follow up on his left shoulder. Patient notes an increase in pain. Anthony Martinez MD [address], [place], [address], [facility] 05/03/2024 08:08:50 05/10/2024 text/html ShoulderReported bypatient.Hand Dominance:right Location:right Quality:aching; dull Severity:pain level 5/10 The patient returns today for follow up on hisright shoulder. Patient notes an increase in pain level. Anthony Martinez MD [address], [place], [address], [facility] 05/10/2024 08:40:17
== END 2024-11-22 11:10 | disposition home or self-care (01) ==
LOC: HO.HUSH 10:40
PROVIDERS: PCP Internal Medicine; Visit Provider Urology
DX: C61 Malignant neoplasm of prostate (principal); N52.01 Erectile dysfunction due to arterial insufficiency; Z13.9 Encounter for screening, unspecified
CPT/HCPCS: 99214; G2211

== ENCOUNTER → 2024-11-22 10:39 | Outpatient (BNVA) | payer MEDICARE, OTHER, SELFPAY | PROVIDERS: PCP Internal Medicine; Visit Provider Urology | DX: C61 Malignant neoplasm of prostate (principal); N52.01 Erectile dysfunction due to arterial insufficiency | CPT/HCPCS: 81003; 99212 ==